=== PATIENT | female | born 1995 | race Hispanic/Latino ===

== ENCOUNTER 2017-11-02 14:22 | Emergency (ER) | payer BC ==
[~2017-11-02] VITALS: Ht 157.5 cm; Wt 65.9 kg
[2017-11-02] MEDS ORDERED: KETOROLAC TROMETHAMINE 30 MG/ML VIAL IV STA (15:02)
[2017-11-02] MEDS ORDERED: CYCLOBENZAPRINE HCL 10 MG TAB PO ONE (16:00)
[2017-11-02 17:18] VITALS: BP 117/60
== END 2017-11-02 17:03 | disposition home or self-care (01) ==
LOC: FSED 14:22
DX: G44.219 Episodic tension-type headache, not intractable (principal); M54.2 Cervicalgia; G24.3 Spasmodic torticollis
CPT/HCPCS: 70450; 72125; 80053; 81003; 81025; 85025; 96374; 99284; J1885

== ENCOUNTER 2018-09-29 11:40 | Emergency (ER) | payer BC ==
[~2018-09-29] VITALS: Ht 160 cm; Wt 57.6 kg
--- OUTSIDE RECORDS SUMMARY | 2018-09-29 11:42 | XMS REPORT | Clinical Summary ---
Author Author [facility] Organization [facility] Address Unknown Phone Unavailable Care Team Providers Care Critical Systems Technician Name Role Phone Asked, No Pcp PCP Unavailable Allergies No Known Allergies Medications End Date Status Medication Sig Dispensed Refills Start Date Active Take 1 tablet 0 vit,[id number] 29 by mouth mg iron- 1 mg tablet per daily. tablet Active ondansetron ODT (ZOFRAN Take 1 tablet 20 tablet 0 ODT) 8 MG disintegrating (8 mg total) 9 tablet by mouth every 8 (eight) hours as needed for nausea or vomiting. Active Problems Comments Yes No additional problems on file Encounters Care Team Description Date Type Specialty Kera Strauss RN 09/29/2018 Orders Only Obstetrics and Gynecology Annamarie Pierre MD 09/29/2018 Telephone Obstetrics and Gynecology Annamarie Pierre MD Missed menses 09/16/2018 Ancillary Obstetrics and Gynecology Procedure Annamarie Pierre MD Missed menses (Primary Dx) 09/16/2018 Office Visit Obstetrics and Gynecology Laura Aguirre MA 09/04/2018 Telephone Obstetrics and Gynecology Chelsea Pate MD 09/04/2018 Telephone Obstetrics and Gynecology after 09/28/2017 Social History Date Tobacco Use Types Packs/Day Years Used Never Assessed Comments Yes Sex Assigned at Date Recorded Not on file Industry Job Start Date Occupation Not on file Not on file Not on file Travel End Travel History Travel Start No recent travel history available. Last Filed Vital Signs Time Taken Vital Sign Reading 09/16/2018 3:04 PM CDT Blood Pressure 125/73 09/16/2018 3:04 PM CDT Pulse 74 - Temperature - - Respiratory Rate - - Oxygen Saturation - - Inhaled Oxygen - Concentration 09/16/2018 3:04 PM CDT Weight 58.1 kg (128 lb) 09/16/2018 3:04 PM CDT Height 160 cm (5' 3") 09/16/2018 3:04 PM CDT Body Mass Index 22.67 Plan of Treatment Care Team Description Date Type Specialty Annamarie Pierre MD [address] [address] 10/21/2018 Routine Obstetrics and Gynecology Health Maintenance Due Date Last Done Comments CHLAMYDIA SCREENING 2010 CERVICAL CANCER SCREENING 2015 INFLUENZA VACCINE 12/18/2018 Procedures Comments Procedure Name Priority Date/Time Associated Diagnosis CHLAMYDIA/N. GONORRHOEAE Routine 09/16/2018 Missed menses RNA, TMA 3:48 PM CDT URINE CULTURE Routine 09/16/2018 Missed menses 3:48 PM CDT US TRANSVAGINAL Routine 09/16/2018 Missed menses 2:50 PM CDT HIV 1/2 ANTIGEN/ANTIBODY, Routine 09/16/2018 FOURTH GENERATION W/RFL 2:23 PM CDT (REFLEX [facility]) HEMOGLOBINOPATHY Routine 09/16/2018 EVALUATION (RFLX) 2:23 PM CDT HEMOGLOBINOPATHY INDICES Routine 09/16/2018 2:23 PM CDT RUBELLA IMMUNE STATUS Routine 09/16/2018 2:23 PM CDT HEPATITIS B SURFACE Routine 09/16/2018 ANTIGEN 2:23 PM CDT RPR TITER WITH REFLEX TO Routine 09/16/2018 CONFIRMATION 2:23 PM CDT ABO/RH Routine 09/16/2018 2:23 PM CDT ANTIBODY SCREEN Routine 09/16/2018 2:23 PM CDT CBC WITH PLATELET AND Routine 09/16/2018 DIFFERENTIAL 2:23 PM CDT after 09/28/2017 Results * CHLAMYDIA/N. GONORRHOEAE RNA, TMA (09/16/2018 3:48 PM CDT) Chlamydia trachomatis NOT DETECTED NOT DETECTED [facility] RNA, CANDELARIA CISNEROS Neisseria gonorrhoeae NOT DETECTED NOT DETECTED [facility] RNA, TMA CISNEROS (Always message) Comment: [employer] This test was performed using NAK[facility]K the APTIMA COMBO2 Assay ([employer] The analytical performance characteristics of this assay, when used to test SurePath specimens have been determined by [facility]. Specimen Urine Resulting Agency Comment Performing Organization Information: Site ID: RGA Name: [facility] Address: [address] [place] [id number] Director: Lavonne Herrera Performing Organization Address [facility] [place] [address] * Urine culture (09/16/2018 3:48 PM CDT) Urine culture SEE NOTE [employer] Comment: [facility] CULTURE, URINE, ROUTINE MICRO NUMBER:[id number] TEST STATUS: FINAL SPECIMEN SOURCE: URINE SPECIMEN QUALITY:ADEQUATE RESULT: No Growth Specimen Urine Resulting Agency Comment Performing Organization Information: Site ID: RGA Name: [facility] Address: [address] [place] [phone] Director: Lavonne Herrera Performing Organization Address [facility] [place] [address] * US Transvaginal (09/16/2018 2:50 PM CDT) Narrative Performed At [facility] LMP:07/11/2018 LMP -- GA:9w4d MAGO:04/17/2019 AUA--GA:7w4d MAGO:05/01/2019 CRL:12.67 mmFHR:136 bpm Yolk sac seen:No Gestational Sac:Good, thickened wall Corpus Luteum:Left DM Performing Organization Address [facility] Phone Number [facility] [address] [place] [address] * Hemoglobinopathy evaluation (09/16/2018 2:23 PM CDT) Hemoglobin A 98.0 >96.0 % [facility] Hemoglobin F <1.0 <2.0 % [facility] Hemoglobin A2 2.0 1.8 - 3.5 % [facility] Interpretation Comment: Normal phenotype. [facility] Resulting Agency Comment Performing Organization Information: Site ID: IG Name: [facility] Address: [address] [place] [phone] Director: Dr. Uriel Levine Performing Organization Address [facility] Cent[facility]ode Phone Number [address] [address] II * Hemoglobinopathy indices (09/16/2018 2:23 PM CDT) RBC 4.46 3.80 - 5.10 Million/uL [facility] HGB 13.3 11.7 - 15.5 g/dL [facility] HCT 40.1 35.0 - 45.0 % [facility] MCV 89.9 80.0 - 100.0 fL [facility] MCH 29.8 27.0 - 33.0 pg [facility] RDW 12.8 11.0 - 15.0 % [facility] Resulting Agency Comment Performing Organization Information: Site ID: IG Name: [facility] Address: [address] [place] [phone] Director: Dr. Uriel Levine Performing Organization Address [facility] Centercovt Phone Number [employer] [address] [place] [address] II * Rubella Immune Status (09/16/2018 2:23 PM CDT) Rubella IgG antibody <0.90 (L) index [facility] Comment[facility] Index II Interpretation ----- <0.90 Not consistent with Immunity 0.90-0.99 Equivocal > or=1.00Consistent with Immunity The presence of rubella IgG antibody suggests immunization or past or current infection with rubella virus. Resulting Agency Comment Performing Organization Information: Site ID: IG Name: [facility] Address: [address] [place] [phone] Director: Dr. Uriel Levine Performing Organization Address [facility]/Zipcode Phone Number [facility] [address] [place] [address] II * HIV 1/2 ANTIGEN/ANTIBODY, FOURTH GENERATION W/RFL (REFLEX [facility]) (09/16/2018 2:23 PM CDT) HIV AG/AB 4th gen NON-REACTIVE NON-REACTIVE [facility] Comment: [facility] HIV-1 antigen and HIV-1/HIV-2 antibodies were not detected. There is no laboratory evidence of HIV infection. PLEASE NOTE: This information has been disclosed to you from records whose confidentiality may be protected by state law.If your state requires such protection, then the state law prohibits you from making any further disclosure of the information without the specific written consent of the person to whom it pertains, or as otherwise permitted by law. A general authorization for the release of medical or other information is NOT sufficient for this purpose. For additional information please refer to http://education.[employer].Indicative Software/faq/AYV751 (This link is being provided for informational/ educational purposes only.) The performance of this assay has not been clinically validated in patients less than 2 years old. Resulting Agency Comment Performing Organization Information: Site ID: RGA Name: [facility] Address: [address] [place] [phone] Director: Lavonne Herrera Performing Organization Address [facility] Centercode Phone Number [employer] [address] [address] * RPR titer with reflex to confirmation (09/16/2018 2:23 PM CDT) RPR (dx) w/refl titer and NON-REACTIVE NON-REACTIVE [facility] confirmatory testing [facility] Resulting Agency Comment Performing Organization Information: Site ID: RGA Name: [facility] Address: [address] [place] [phone] Director: Lavonne Herrera Performing Organization Address [facility]/Zipcode Phone Number [employer] [address] [address] * ABO and Rh (09/16/2018 2:23 PM CDT) ABO grouping A [facility] Rh type RH(D) POSITIVE [facility] Resulting Agency Comment Performing Organization Information: Site ID: IG Name: [facility] Address: [address] [place] [address] Director: Dr. Uriel Levine Performing Organization Address City/State/Zipcode Phone Number [facility] [address] [place] [address] II * Hepatitis B surface antigen (09/16/2018 2:23 PM CDT) Hepatitis B surface Ag NON-REACTIVE NON-REACTIVE [employer] [facility] Resulting Agency Comment Performing Organization Information: Site ID: RGA Name: [facility] Address: [address] [place] [address] Director: Lavonne Herrera Performing Organization Address City/State/Zipcode Phone Number [facility] [employer] [facility] [address] [place] [address] * CBC with platelet and differential (09/16/2018 2:23 PM CDT) WBC 10.4 3.8 - 10.8 Thousand/uL [employer] [facility] RBC 4.41 3.80 - 5.10 Million/uL [employer] [facility] HGB 13.1 11.7 - 15.5 g/dL [employer] [facility] HCT 39.2 35.0 - 45.0 % [employer] [facility] MCV 88.9 80.0 - 100.0 fL [employer] [facility] MCH 29.7 27.0 - 33.0 pg [employer] [facility] MCHC 33.4 32.0 - 36.0 g/dL [employer] [facility] RDW 12.7 11.0 - 15.0 % [employer] [facility] Platelet count 267 140 - 400 Thousand/uL [employer] [facility] MPV 10.3 7.5 - 12.5 fL [employer] [facility] Neutrophils, absolute 7,290 1,500 - 7,800 cells/uL [employer] [facility] Lymphocytes, absolute 2,007 850 - 3,900 cells/uL [facility] [employer] [facility] Monocytes, absolute 874 200 - 950 cells/uL [employer] Eosinophils, absolute 177 15 - 500 cells/uL [employer] Basophils, absolute 52 0 - 200 cells/uL [employer] [facility] Neutrophils 70.1 % [employer] [facility] Lymphocytes 19.3 % [employer] [facility] Monocytes 8.4 % [employer] [facility] Eosinophils 1.7 % [facility] N[facility] Basophils + RC 0.5 % [employer] [facility] Resulting Agency Comment Performing Organization Information: Site ID: RGA Name: [facility] Address: [address] [place] [address] Director: Lavonne Herrera Performing Organization Address City/[facility] Centercode Phone Number [employer] [facility] [address] [place] [address] * Antibody screen (09/16/2018 2:23 PM CDT) Antibody screen, RBC NO ANTIBODIES DETECTED [facility] w/refl ID, titer and Ag Comment: [facility] II Reference range No antibodies detected This assay is a screening test for the detection of red blood cell antibodies. The test is not to be used for pretransfusion screening or for the medical management of an alloimmunized . Resulting Agency Comment Performing Organization Information: Site ID: IG Name: [facility] Address: [address] [place] [address] Director: Dr. Uriel Levine Performing Organization Address [facility] Centercode Phone Number [facility] [employer] [facility] [address] [facility] [place] [address] II after 09/28/2017 Insurance Payer Benefit Subscriber ID Type Phone Address Plan / Group BCBS BCBS xxxxxxxxxxxx PPO CHOICE PPO/SERJIO LU PPO Advance Directives Patient has advance care planning documents on file. For more information, audrey francisco contact: Cedrick Green [address] [place] [address]
[2018-09-29] MEDS ORDERED: SODIUM CHLORIDE 0.9% 1000ML 1,000 ML IV SCH ×2 (12:00→13:45)
[2018-09-29] MEDS ORDERED: PROMETHAZINE 12.5MG/ NACL 0.9% 12.5 MG/50 ML BAG IV ONE (12:00)
[2018-09-29] MEDS ORDERED: POTASSIUM CHLORIDE 20 MEQ TAB CR PO STA (12:53)
[2018-09-29 14:04] VITALS: BP 128/75
== END 2018-09-29 14:23 | disposition home or self-care (01) ==
LOC: FSED 11:40
DX: R11.2 Nausea with vomiting, unspecified (principal); R19.7 Diarrhea, unspecified; K52.9 Noninfective gastroenteritis and colitis, unspecified; A08.4 Viral intestinal infection, unspecified; E87.6 Hypokalemia; E86.0 Dehydration
CPT/HCPCS: 80053; 81003; 85025; 99283; J2550